=== PATIENT | female | born 1955 | race African-American/Black ===

== ENCOUNTER 2018-04-13 18:01 | Emergency (ER) | payer MEDICARE, MEDICAID ==
[~2018-04-13] VITALS: Ht 157.5 cm; Wt 55.0 kg
[2018-04-13] MEDS ORDERED: ALBUTEROL (0.083%) 2.5MG/3ML NEB HHN STA (19:30)
[2018-04-13] MEDS ORDERED: ONDANSETRON HCL 4MG/2ML VIAL IV ONE (19:30)
[2018-04-13 19:53] LABS: BASOPHILS % 1.3 % (0.0-2.0); EOSINOPHILS % 0.7 % (0.0-5.0); HEMATOCRIT. 41.9 % (36.0-48.0); HEMOGLOBIN. 14.5 g/dL (12.0-16.0); LYMPHOCYTES % 24.7 % (20.0-50.0); MEAN CORPUSCULAR HEMOGLOBIN 33.3 pg (28.0-32.0); MEAN CORPUSCULAR VOLUME 96.4 fL (81.0-99.0); MONOCYTES % 7.3 % (2.0-8.0); PLATELET 277 x1000/uL (130-400); RED BLOOD CELL COUNT 4.35 mill/uL (4.2-5.4); RED CELL DISTRIBUTION WIDTH 13.3 % (11.6-14.6)
[2018-04-13 19:56] LABS: CHLORIDE 99 mEq/L (98-107)
[2018-04-13 20:00] LABS: ETHANOL BLOOD < 10 mg/dL
[2018-04-13 20:11] LABS: PROTHROMBIN TIME 10.9 sec (9.4-11.6)
[2018-04-13] MEDS ORDERED: DEXAMETHASONE 10 MG/ML VIAL IV ONE (21:30)
[2018-04-13 21:50] VITALS: BP 135/96
[2018-04-14] MEDS ORDERED: ESCI10TA54 PO (13:18)
[2018-04-14] MEDS ORDERED: IBUP-2030 PO (13:18)
[2018-04-14] MEDS ORDERED: OMEP20CA10 PO (13:18)
[2018-04-14] MEDS ORDERED: SIMV20TA6 PO (13:18)
== END 2018-04-13 22:05 | disposition left against medical advice (07) ==
LOC: ER 18:12
DX: D49.6 Neoplasm of unspecified behavior of brain (principal); M50.322 Other cervical disc degeneration at C5-C6 level; M50.323 Other cervical disc degeneration at C6-C7 level; R11.2 Nausea with vomiting, unspecified; J44.9 Chronic obstructive pulmonary disease, unspecified; R20.2 Paresthesia of skin; R06.2 Wheezing; I10 Essential (primary) hypertension; R53.1 Weakness; F10.10 Alcohol abuse, uncomplicated; G47.00 Insomnia, unspecified; F17.210 Nicotine dependence, cigarettes, uncomplicated; R79.1 Abnormal coagulation profile; R79.9 Abnormal finding of blood chemistry, unspecified; Z86.59 Personal history of other mental and behavioral disorders; Y90.0 Blood alcohol level of less than 20 mg/100 ml
CPT/HCPCS: 36415; 70450; 71045; 72125; 80053; 85025; 85610; 93005; 94640; 96374; 96375; 99285; G0482; J1100; J2405; J7611

== ENCOUNTER 2018-04-14 08:51 | Inpatient (IN) | payer OTHER, MEDICAID ==
[~2018-04-14] VITALS: Ht 170.2 cm; Wt 52.6 kg
[2018-04-14] MEDS ORDERED: MORPHINE SULFATE 4 MG/ML CPJ (NOT FOR IM USE) IV STA (09:20)
[2018-04-14] MEDS ORDERED: ONDANSETRON HCL 4MG/2ML VIAL IV STA (09:20)
[2018-04-14 10:06] LABS: HEMATOCRIT. 41.9 % (36.0-48.0); HEMOGLOBIN. 14.3 g/dL (12.0-16.0); MEAN CORPUSCULAR HEMOGLOBIN 33.2 pg (28.0-32.0); MEAN CORPUSCULAR VOLUME 97.2 fL (81.0-99.0); MEAN PLATELET VOLUME 8.3 fl (7.4-10.4); PLATELET 257 x1000/uL (130-400); RED BLOOD CELL COUNT 4.31 mill/uL (4.2-5.4); RED CELL DISTRIBUTION WIDTH 12.8 % (11.6-14.6)
[2018-04-14 10:12] LABS: CHLORIDE 97 mEq/L (98-107)
[2018-04-14 10:13] LABS: PROTHROMBIN TIME 10.7 sec (9.4-11.6)
[2018-04-14] MEDS ORDERED: GADOBENATE DIMEGLUMINE 529 MG/ML 10ML IV ONE (10:14)
[2018-04-14 11:30] LABS: PLATELET ESTIMATE NORMAL
[2018-04-14] MEDS ORDERED: NICARDIPINE 100 MG in SODIUM CHLORIDE 0.9% 60 ML IV PRN (12:00)
[2018-04-14 12:15] VITALS: BP 153/85
[2018-04-14] MEDS ORDERED: DOCUSATE SODIUM 250MG CAPSULE PO PRN (12:30)
[2018-04-14] MEDS ORDERED: ACETAMINOPHEN 325MG TABLET PO PRN (12:30)
[2018-04-14] MEDS ORDERED: ONDANSETRON HCL 4MG/2ML VIAL IV PRN (12:30)
[2018-04-14 12:51] VITALS: BP 153/85
[2018-04-14] MEDS ORDERED: IBUP-2030 PO (13:18)
[2018-04-14] MEDS ORDERED: SIMV20TA6 PO (13:18)
[2018-04-14] MEDS ORDERED: OMEP20CA10 PO (13:18)
[2018-04-14] MEDS ORDERED: ESCI10TA54 PO (13:18)
[2018-04-14] MEDS ORDERED: ONDANSETRON 4MG ODT PO PRN (14:30)
[2018-04-14] MEDS: DEXAMETHASONE 4MG/ML 1ML VIAL IV SCH ×3 (15:55→23:56)
[2018-04-14] MEDS: LEVETIRACETAM 500 MG in SODIUM CHLORIDE 0.9% 100 ML IV SCH ×2 (15:56→22:57)
[2018-04-14] MEDS: DEXT 5%/LACTATED RINGERS 1,000 ML IV SCH (15:56)
[2018-04-14] MEDS: ENOXAPARIN 40MG/0.4ML SYR SUBCUT SCH (15:57)
[2018-04-14 16:00] VITALS: BP 160/67
[2018-04-14] MEDS ORDERED: DOCUSATE SODIUM 100MG CAPSULE PO PRN (16:52)
[2018-04-14] MEDS ORDERED: CLONIDINE 0.1MG TABLET PO PRN (17:00)
[2018-04-14] MEDS ORDERED: DOCUSATE SODIUM 250MG CAPSULE PO SCH (17:00)
[2018-04-14] MEDS ORDERED: IOHEXOL-300 100 ML BOTTLE ONE (17:45)
[2018-04-14] MEDS: DOCUSATE SODIUM 100MG CAPSULE PO SCH (18:15)
[2018-04-14 20:00] VITALS: BP 140/71
[2018-04-14] MEDS ORDERED: AMLODIPINE 5MG TABLET PO NR (20:15)
[2018-04-14] MEDS ORDERED: IPRATROPIUM/ALBUTEROL 0.5-3(2.5)MG/3ML NEB HHN PRN (20:15)
[2018-04-14] MEDS: TRAZODONE HCL 50MG TABLET PO SCH (21:38)
[2018-04-15] VITALS: BP 125/55
[2018-04-15] MEDS: HYDROCODONE/ACETAMINOPHEN 5/325MG TABLET PO PRN ×2 (00:15→21:55)
[2018-04-15] MEDS: IPRATROPIUM/ALBUTEROL 0.5-3(2.5)MG/3ML NEB HHN SCH ×4 (00:55→20:12)
[2018-04-15 04:00] VITALS: BP 126/66
[2018-04-15] MEDS: DEXAMETHASONE 4MG/ML 1ML VIAL IV SCH ×4 (05:57→23:42)
[2018-04-15 06:45] LABS: BASOPHILS % 0.4 % (0.0-2.0); HEMATOCRIT. 38.8 % (36.0-48.0); HEMOGLOBIN. 13.1 g/dL (12.0-16.0); LYMPHOCYTES % 17.6 % (20.0-50.0); MEAN CORPUSCULAR HEMOGLOBIN 33.3 pg (28.0-32.0); MEAN CORPUSCULAR VOLUME 98.4 fL (81.0-99.0); MEAN PLATELET VOLUME 9.2 fl (7.4-10.4); MONOCYTES % 3.1 % (2.0-8.0); NEUTROPHILS % 78.9 % (40.0-76.0); PLATELET 215 x1000/uL (130-400); RED BLOOD CELL COUNT 3.94 mill/uL (4.2-5.4); RED CELL DISTRIBUTION WIDTH 13.4 % (11.6-14.6)
[2018-04-15 07:08] LABS: CHLORIDE 100 mEq/L (98-107)
[2018-04-15 08:00] VITALS: BP 137/66
[2018-04-15] MEDS ORDERED: DEXTROSE 50% WATER 50ML SYRINGE IV PRN (08:45)
[2018-04-15] MEDS: AMLODIPINE 5MG TABLET PO SCH (09:05)
[2018-04-15] MEDS: DOCUSATE SODIUM 100MG CAPSULE PO SCH ×2 (09:05→17:35)
[2018-04-15] MEDS: BLOOD SUGAR DIAGNOSTIC STRIP TEST SCH ×4 (09:05→20:02)
[2018-04-15] MEDS: OMEPRAZOLE 20MG CAPSULE EXTENDED RELEASE PO SCH (09:05)
[2018-04-15] MEDS: INSULIN LISPRO 100 UNITS/ML SUBCUT SCH ×4 (09:13→20:15)
[2018-04-15] MEDS: DEXT 5%/LACTATED RINGERS 1,000 ML IV SCH (09:14)
[2018-04-15] MEDS: NICOTINE 14MG PATCH TD SCH (09:14)
[2018-04-15 12:00] VITALS: BP 125/46
[2018-04-15] MEDS: ENOXAPARIN 40MG/0.4ML SYR SUBCUT SCH (15:38)
[2018-04-15 15:49] VITALS: BP 109/47
[2018-04-15] MEDS ORDERED: LEVOFLOXACIN 500MG PREMIX 100 ML IV SCH (17:00)
[2018-04-15] MEDS: LEVOFLOXACIN 500MG PREMIX 100 ML IV SCH (17:35)
[2018-04-15 19:57] VITALS: BP 122/60
[2018-04-15] MEDS: TRAZODONE HCL 50MG TABLET PO SCH (20:14)
[2018-04-15] MEDS: LEVETIRACETAM 500MG TABLET PO SCH (20:14)
[2018-04-16] VITALS: BP 130/59
[2018-04-16] MEDS: IPRATROPIUM/ALBUTEROL 0.5-3(2.5)MG/3ML NEB HHN SCH ×4 (00:54→21:04)
[2018-04-16] MEDS: DEXT 5%/LACTATED RINGERS 1,000 ML IV SCH ×2 (03:30→18:43)
[2018-04-16 03:59] VITALS: BP 128/63
[2018-04-16] MEDS: DEXAMETHASONE 4MG/ML 1ML VIAL IV SCH ×4 (05:32→23:31)
[2018-04-16 06:47] LABS: BASOPHILS % 0.5 % (0.0-2.0); HEMATOCRIT. 38.5 % (36.0-48.0); HEMOGLOBIN. 12.8 g/dL (12.0-16.0); LYMPHOCYTES % 10.3 % (20.0-50.0); MEAN CORPUSCULAR HEMOGLOBIN 32.8 pg (28.0-32.0); MEAN CORPUSCULAR VOLUME 98.4 fL (81.0-99.0); MEAN PLATELET VOLUME 9.6 fl (7.4-10.4); MONOCYTES % 3.4 % (2.0-8.0); NEUTROPHILS % 85.8 % (40.0-76.0); PLATELET 186 x1000/uL (130-400); RED BLOOD CELL COUNT 3.91 mill/uL (4.2-5.4); RED CELL DISTRIBUTION WIDTH 12.8 % (11.6-14.6)
[2018-04-16 07:30] LABS: CHLORIDE 101 mEq/L (98-107)
[2018-04-16] MEDS: BLOOD SUGAR DIAGNOSTIC STRIP TEST SCH ×4 (07:40→20:14)
[2018-04-16 09:30] VITALS: BP 111/54
[2018-04-16] MEDS: DOCUSATE SODIUM 100MG CAPSULE PO SCH ×2 (09:34→17:00)
[2018-04-16] MEDS: AMLODIPINE 5MG TABLET PO SCH (09:34)
[2018-04-16] MEDS: LEVETIRACETAM 500MG TABLET PO SCH ×2 (09:34→20:14)
[2018-04-16] MEDS: INSULIN LISPRO 100 UNITS/ML SUBCUT SCH ×4 (09:35→20:15)
[2018-04-16] MEDS: NICOTINE 14MG PATCH TD SCH (09:38)
[2018-04-16] MEDS: POTASSIUM CHLORIDE 20MEQ TABLET SR PO SCH ×2 (09:57→18:42)
[2018-04-16] MEDS: OMEPRAZOLE 20MG CAPSULE EXTENDED RELEASE PO SCH (10:00)
[2018-04-16] MEDS ORDERED: CITALOPRAM HYDROBROMIDE 10MG TABLET PO ONE (10:15)
[2018-04-16] MEDS ORDERED: CITALOPRAM HYDROBROMIDE 20MG TABLET PO NR (10:15)
[2018-04-16 13:00] VITALS: BP 112/73
[2018-04-16] MEDS: ENOXAPARIN 40MG/0.4ML SYR SUBCUT SCH (15:27)
[2018-04-16 16:00] VITALS: BP 141/75
[2018-04-16] MEDS: LEVOFLOXACIN 500MG PREMIX 100 ML IV SCH (18:22)
[2018-04-16] MEDS: MONTELUKAST SODIUM 10MG TABLET PO SCH (18:43)
[2018-04-16 20:00] VITALS: BP_SYST 130; BP_SYST 137; BP_DIAS 67; BP_DIAS 76
[2018-04-16] MEDS: TRAZODONE HCL 50MG TABLET PO SCH (20:14)
[2018-04-16] MEDS: LIDOCAINE 5% PATCH TOP SCH (20:16)
[2018-04-17] VITALS: BP 139/61
[2018-04-17] MEDS: IPRATROPIUM/ALBUTEROL 0.5-3(2.5)MG/3ML NEB HHN SCH ×3 (00:09→15:55)
[2018-04-17 04:00] VITALS: BP 135/84
[2018-04-17] MEDS: DEXAMETHASONE 4MG/ML 1ML VIAL IV SCH ×3 (05:17→17:20)
[2018-04-17] MEDS: POTASSIUM CHLORIDE 20MEQ TABLET SR PO SCH ×2 (05:31→17:20)
[2018-04-17 06:43] LABS: BASOPHILS % 0.5 % (0.0-2.0); EOSINOPHILS % 0.1 % (0.0-5.0); HEMOGLOBIN. 13.8 g/dL (12.0-16.0); LYMPHOCYTES % 13.9 % (20.0-50.0); MEAN CORPUSCULAR HEMOGLOBIN 33.1 pg (28.0-32.0); MEAN CORPUSCULAR VOLUME 98.3 fL (81.0-99.0); MEAN PLATELET VOLUME 9.5 fl (7.4-10.4); MONOCYTES % 5.2 % (2.0-8.0); NEUTROPHILS % 80.3 % (40.0-76.0); PLATELET 189 x1000/uL (130-400); RED BLOOD CELL COUNT 4.17 mill/uL (4.2-5.4)
[2018-04-17 07:12] LABS: CHLORIDE 96 mEq/L (98-107)
[2018-04-17] MEDS: BLOOD SUGAR DIAGNOSTIC STRIP TEST SCH ×4 (07:40→21:14)
[2018-04-17 08:00] VITALS: BP 147/66
[2018-04-17] MEDS: INSULIN LISPRO 100 UNITS/ML SUBCUT SCH ×4 (08:10→21:24)
[2018-04-17] MEDS ORDERED: CITALOPRAM HYDROBROMIDE 10MG TABLET PO SCH (09:00)
[2018-04-17 12:00] VITALS: BP 133/68
[2018-04-17] MEDS: LEVETIRACETAM 500MG TABLET PO SCH ×2 (12:07→21:23)
[2018-04-17] MEDS: AMLODIPINE 5MG TABLET PO SCH (12:07)
[2018-04-17] MEDS: HYDROCODONE/ACETAMINOPHEN 5/325MG TABLET PO PRN (12:08)
[2018-04-17] MEDS: FAMOTIDINE 20MG TABLET PO SCH ×2 (12:09→16:33)
[2018-04-17] MEDS: NICOTINE 14MG PATCH TD SCH (12:09)
[2018-04-17] MEDS: DOCUSATE SODIUM 100MG CAPSULE PO SCH ×2 (12:09→16:34)
[2018-04-17] MEDS: CITALOPRAM HYDROBROMIDE 20MG TABLET PO SCH (12:36)
[2018-04-17] MEDS: ENOXAPARIN 40MG/0.4ML SYR SUBCUT SCH (14:24)
[2018-04-17 16:00] VITALS: BP 123/69
[2018-04-17] MEDS: MONTELUKAST SODIUM 10MG TABLET PO SCH (16:33)
[2018-04-17] MEDS: LIDOCAINE 5% PATCH TOP SCH (16:42)
[2018-04-17] MEDS: DEXT 5%/LACTATED RINGERS 1,000 ML IV SCH (16:42)
[2018-04-17] MEDS: LEVOFLOXACIN 500MG PREMIX 100 ML IV SCH (16:43)
[2018-04-17 20:00] VITALS: BP 133/62
[2018-04-17] MEDS: LORAZEPAM 0.5MG TABLET PO PRN (21:23)
[2018-04-17] MEDS: TRAZODONE HCL 50MG TABLET PO SCH (21:23)
[2018-04-18] VITALS (18 sets, daily range): BP systolic 105–147; BP diastolic 53–92
[2018-04-18] MEDS: IPRATROPIUM/ALBUTEROL 0.5-3(2.5)MG/3ML NEB HHN SCH ×4 (00:08→23:59)
[2018-04-18] MEDS: DEXT 5%/LACTATED RINGERS 1,000 ML IV SCH (01:43)
[2018-04-18] MEDS: POTASSIUM CHLORIDE 20MEQ TABLET SR PO SCH ×2 (05:15→17:54)
[2018-04-18] MEDS: DEXAMETHASONE 4MG/ML 1ML VIAL IV SCH ×4 (05:21→17:54)
[2018-04-18] MEDS: BLOOD SUGAR DIAGNOSTIC STRIP TEST SCH ×4 (05:33→21:34)
[2018-04-18 05:44] LABS: BASOPHILS % 0.5 % (0.0-2.0); EOSINOPHILS % 0.1 % (0.0-5.0); HEMATOCRIT. 44.7 % (36.0-48.0); LYMPHOCYTES % 19.8 % (20.0-50.0); MEAN CORPUSCULAR HEMOGLOBIN 33.1 pg (28.0-32.0); MEAN CORPUSCULAR VOLUME 98.4 fL (81.0-99.0); MEAN PLATELET VOLUME 9.9 fl (7.4-10.4); MONOCYTES % 6.7 % (2.0-8.0); NEUTROPHILS % 72.9 % (40.0-76.0); PLATELET 163 x1000/uL (130-400); RED BLOOD CELL COUNT 4.54 mill/uL (4.2-5.4)
[2018-04-18 06:17] LABS: CHLORIDE 99 mEq/L (98-107)
[2018-04-18] MEDS ORDERED: LIDOCAINE HCL/PF 1% 10 MG/ML 30ML VIAL ONE (07:45)
[2018-04-18] MEDS ORDERED: FENTANYL CITRATE/PF 50MCG/ML 2ML VIAL ONE (07:45)
[2018-04-18] MEDS ORDERED: SODIUM BICARBONATE 4% (2.4MEQ) 5ML VIAL IV ONE (07:47)
[2018-04-18] MEDS ORDERED: FENTANYL CITRATE/PF 50MCG/ML 2ML VIAL IV ONE (08:30)
[2018-04-18] MEDS: DOCUSATE SODIUM 100MG CAPSULE PO SCH ×2 (09:00→17:00)
[2018-04-18] MEDS: AMLODIPINE 5MG TABLET PO SCH (09:00)
[2018-04-18] MEDS: LEVETIRACETAM 500MG TABLET PO SCH ×2 (09:20→21:00)
[2018-04-18] MEDS: CITALOPRAM HYDROBROMIDE 20MG TABLET PO SCH (09:20)
[2018-04-18] MEDS: FAMOTIDINE 20MG TABLET PO SCH ×2 (09:20→17:54)
[2018-04-18] MEDS: NICOTINE 14MG PATCH TD SCH (09:21)
[2018-04-18] MEDS: INSULIN LISPRO 100 UNITS/ML SUBCUT SCH ×4 (09:28→21:34)
[2018-04-18] MEDS ORDERED: MORPHINE SULFATE 4 MG/ML CPJ (NOT FOR IM USE) IV SCH (10:00)
[2018-04-18] MEDS: LEVOFLOXACIN 500MG TABLET PO SCH (11:37)
[2018-04-18] MEDS ORDERED: SODIUM CHLORIDE 0.9% 250 ML IV ONE (11:48)
[2018-04-18] MEDS: ENOXAPARIN 40MG/0.4ML SYR SUBCUT SCH (14:55)
[2018-04-18] MEDS: MONTELUKAST SODIUM 10MG TABLET PO SCH (17:54)
[2018-04-18] MEDS: TRAZODONE HCL 50MG TABLET PO SCH (21:00)
[2018-04-18] MEDS: HYDROCODONE/ACETAMINOPHEN 5/325MG TABLET PO PRN (21:25)
[2018-04-19] VITALS (7 sets, daily range): BP systolic 121–152; BP diastolic 50–86
[2018-04-19] MEDS: DEXAMETHASONE 4MG/ML 1ML VIAL IV SCH ×4 (00:04→18:03)
[2018-04-19 06:16] LABS: BASOPHILS % 0.2 % (0.0-2.0); HEMATOCRIT. 42.7 % (36.0-48.0); HEMOGLOBIN. 14.4 g/dL (12.0-16.0); LYMPHOCYTES % 9.7 % (20.0-50.0); MEAN CORPUSCULAR HEMOGLOBIN 33.2 pg (28.0-32.0); MEAN CORPUSCULAR VOLUME 98.1 fL (81.0-99.0); MEAN PLATELET VOLUME 9.2 fl (7.4-10.4); MONOCYTES % 3.8 % (2.0-8.0); NEUTROPHILS % 86.3 % (40.0-76.0); PLATELET 161 x1000/uL (130-400); RED BLOOD CELL COUNT 4.35 mill/uL (4.2-5.4); RED CELL DISTRIBUTION WIDTH 12.8 % (11.6-14.6)
[2018-04-19 06:29] LABS: CHLORIDE 93 mEq/L (98-107)
[2018-04-19] MEDS: POTASSIUM CHLORIDE 20MEQ TABLET SR PO SCH ×2 (06:35→18:02)
[2018-04-19] MEDS ORDERED: LIDOCAINE HCL 1% 20ML VIAL (Pyxis) INJ ONE (07:32)
[2018-04-19] MEDS ORDERED: SODIUM BICARBONATE 4% (2.4MEQ) 5ML VIAL IV ONE (07:32)
[2018-04-19] MEDS: BLOOD SUGAR DIAGNOSTIC STRIP TEST SCH ×4 (07:40→21:37)
[2018-04-19] MEDS: IPRATROPIUM/ALBUTEROL 0.5-3(2.5)MG/3ML NEB HHN SCH ×2 (08:18→16:42)
[2018-04-19] MEDS: MORPHINE SULFATE 4 MG/ML CPJ (NOT FOR IM USE) IV PRN (08:30)
[2018-04-19] MEDS ORDERED: MORPHINE SULFATE 4 MG/ML CPJ (NOT FOR IM USE) IV NR (09:30)
[2018-04-19] MEDS: AMLODIPINE 5MG TABLET PO SCH (09:46)
[2018-04-19] MEDS: CITALOPRAM HYDROBROMIDE 20MG TABLET PO SCH (09:50)
[2018-04-19] MEDS: FAMOTIDINE 20MG TABLET PO SCH ×2 (09:50→18:02)
[2018-04-19 09:52] LABS: BG BASE EXCESS 1.5 mmol/L (-2.0-2.0); BG CARBOXYHEMOGLOBIN 0.9 % (0.5-1.5); BG DEOXYHEMOGLOBIN 3.4 % (0.0-5.0); BG FRACTION INSPIRED OXYGEN 28; BG HCO3 ACT 26.2 mmol/L (22.0-26.0); BG METHEMOGLOBIN 0.3 % (0.0-1.5); BG OXYGEN SATURATION 96.6 % (92.0-98.5); BG OXYHEMOGLOBIN 95.4 % (94.0-97.0); BG PCO2 41.5 mmHg (35.0-45.0); BG PH 7.418 (7.350-7.450); BG PO2 86.1 mmHg (75.0-100.0); BG SAMPLE SITE LEFT BRACHIAL; BG TOTAL HEMOGLOBIN 15.4 g/dL (12.0-18.0); BG VENT MODE NASAL CANNULA
[2018-04-19] MEDS: LIDOCAINE 5% PATCH TOP SCH ×2 (10:04→10:10)
[2018-04-19] MEDS: INSULIN LISPRO 100 UNITS/ML SUBCUT SCH ×4 (10:05→21:53)
[2018-04-19] MEDS: LEVETIRACETAM 500MG TABLET PO SCH ×2 (10:07→19:47)
[2018-04-19] MEDS: DOCUSATE SODIUM 100MG CAPSULE PO SCH ×2 (10:07→18:02)
[2018-04-19] MEDS: NICOTINE 14MG PATCH TD SCH (10:14)
[2018-04-19] MEDS: DEXT 5%/LACTATED RINGERS 1,000 ML IV SCH (10:43)
[2018-04-19] MEDS: LEVOFLOXACIN 500MG TABLET PO SCH (12:51)
[2018-04-19] MEDS: ENOXAPARIN 40MG/0.4ML SYR SUBCUT SCH (15:28)
[2018-04-19] MEDS: MONTELUKAST SODIUM 10MG TABLET PO SCH (18:02)
[2018-04-19] MEDS: TRAZODONE HCL 50MG TABLET PO SCH (19:47)
[2018-04-19] MEDS: LORAZEPAM 0.5MG TABLET PO PRN (19:47)
[2018-04-20 00:04] VITALS: BP 128/70
[2018-04-20] MEDS: IPRATROPIUM/ALBUTEROL 0.5-3(2.5)MG/3ML NEB HHN SCH ×3 (00:18→15:57)
[2018-04-20] MEDS: DEXAMETHASONE 4MG/ML 1ML VIAL IV SCH ×4 (02:10→17:33)
[2018-04-20 04:00] VITALS: BP 149/63
[2018-04-20] MEDS: POTASSIUM CHLORIDE 20MEQ TABLET SR PO SCH ×2 (05:28→17:33)
[2018-04-20] MEDS: DEXT 5%/LACTATED RINGERS 1,000 ML IV SCH ×2 (05:28→20:17)
[2018-04-20] MEDS: MORPHINE SULFATE 4 MG/ML CPJ (NOT FOR IM USE) IV PRN (05:29)
[2018-04-20] MEDS: BLOOD SUGAR DIAGNOSTIC STRIP TEST SCH ×4 (05:53→20:27)
[2018-04-20 08:00] VITALS: BP 146/72
[2018-04-20 08:40] LABS: BASOPHILS % 0.2 % (0.0-2.0); HEMATOCRIT. 43.3 % (36.0-48.0); HEMOGLOBIN. 14.3 g/dL (12.0-16.0); LYMPHOCYTES % 11.5 % (20.0-50.0); MEAN CORPUSCULAR HEMOGLOBIN 32.6 pg (28.0-32.0); MEAN CORPUSCULAR VOLUME 98.7 fL (81.0-99.0); MEAN PLATELET VOLUME 9.4 fl (7.4-10.4); MONOCYTES % 6.3 % (2.0-8.0); PLATELET 163 x1000/uL (130-400); RED BLOOD CELL COUNT 4.39 mill/uL (4.2-5.4); RED CELL DISTRIBUTION WIDTH 13.1 % (11.6-14.6)
[2018-04-20 08:56] LABS: CHLORIDE 95 mEq/L (98-107)
[2018-04-20] MEDS: INSULIN LISPRO 100 UNITS/ML SUBCUT SCH ×4 (09:02→20:30)
[2018-04-20] MEDS: AMLODIPINE 5MG TABLET PO SCH (09:02)
[2018-04-20] MEDS: NICOTINE 14MG PATCH TD SCH (09:03)
[2018-04-20] MEDS: FAMOTIDINE 20MG TABLET PO SCH ×2 (09:03→16:30)
[2018-04-20] MEDS: LIDOCAINE 5% PATCH TOP SCH (09:03)
[2018-04-20] MEDS: CITALOPRAM HYDROBROMIDE 20MG TABLET PO SCH (09:04)
[2018-04-20] MEDS: DOCUSATE SODIUM 100MG CAPSULE PO SCH ×2 (09:04→16:30)
[2018-04-20] MEDS: LEVETIRACETAM 500MG TABLET PO SCH ×2 (09:04→20:17)
[2018-04-20 09:20] LABS: BG BASE EXCESS 0.9 mmol/L (-2.0-2.0); BG CARBOXYHEMOGLOBIN 1.1 % (0.5-1.5); BG DEOXYHEMOGLOBIN 8.8 % (0.0-5.0); BG METHEMOGLOBIN 0.3 % (0.0-1.5); BG OXYGEN SATURATION 91.1 % (92.0-98.5); BG OXYHEMOGLOBIN 89.8 % (94.0-97.0); BG PCO2 38.6 mmHg (35.0-45.0); BG PO2 58.6 mmHg (75.0-100.0); BG SAMPLE SITE RIGHT BRACHIAL; BG TOTAL HEMOGLOBIN 15.7 g/dL (12.0-18.0); BG VENT MODE ROOM AIR
[2018-04-20] MEDS: LORAZEPAM 0.5MG TABLET PO PRN ×2 (11:55→20:17)
[2018-04-20] MEDS: LEVOFLOXACIN 500MG TABLET PO SCH (11:55)
[2018-04-20 12:00] VITALS: BP 132/68
[2018-04-20] MEDS ORDERED: LIDOCAINE HCL 1% 20ML VIAL (Pyxis) INJ ONE (14:33)
[2018-04-20] MEDS: ENOXAPARIN 40MG/0.4ML SYR SUBCUT SCH (15:50)
[2018-04-20 16:00] VITALS: BP 126/65
[2018-04-20] MEDS: MONTELUKAST SODIUM 10MG TABLET PO SCH (16:30)
[2018-04-20 20:00] VITALS: BP 126/69
[2018-04-20] MEDS: TRAZODONE HCL 50MG TABLET PO SCH (20:17)
[2018-04-21] VITALS: BP 126/55
[2018-04-21] MEDS: IPRATROPIUM/ALBUTEROL 0.5-3(2.5)MG/3ML NEB HHN SCH ×2 (00:14→07:26)
[2018-04-21 04:00] VITALS: BP 128/68
[2018-04-21] MEDS: LORAZEPAM 0.5MG TABLET PO PRN (04:43)
[2018-04-21] MEDS: POTASSIUM CHLORIDE 20MEQ TABLET SR PO SCH (05:24)
[2018-04-21] MEDS: BLOOD SUGAR DIAGNOSTIC STRIP TEST SCH (05:25)
[2018-04-21] MEDS: DEXAMETHASONE 4MG/ML 1ML VIAL IV SCH ×3 (05:26→12:01)
[2018-04-21 06:48] LABS: BASOPHILS % 0.2 % (0.0-2.0); HEMATOCRIT. 42.6 % (36.0-48.0); HEMOGLOBIN. 14.4 g/dL (12.0-16.0); LYMPHOCYTES % 8.2 % (20.0-50.0); MEAN CORPUSCULAR HEMOGLOBIN 33.4 pg (28.0-32.0); MEAN CORPUSCULAR VOLUME 98.6 fL (81.0-99.0); MEAN PLATELET VOLUME 9.8 fl (7.4-10.4); MONOCYTES % 6.2 % (2.0-8.0); NEUTROPHILS % 85.4 % (40.0-76.0); PLATELET 167 x1000/uL (130-400); RED BLOOD CELL COUNT 4.32 mill/uL (4.2-5.4); RED CELL DISTRIBUTION WIDTH 13.1 % (11.6-14.6)
[2018-04-21 08:00] VITALS: BP 113/55
[2018-04-21 08:32] LABS: CHLORIDE 94 mEq/L (98-107)
[2018-04-21] MEDS: LIDOCAINE 5% PATCH TOP SCH (09:00)
[2018-04-21] MEDS: CITALOPRAM HYDROBROMIDE 20MG TABLET PO SCH (10:16)
[2018-04-21] MEDS: FAMOTIDINE 20MG TABLET PO SCH (10:16)
[2018-04-21] MEDS: AMLODIPINE 5MG TABLET PO SCH (10:17)
[2018-04-21] MEDS: DOCUSATE SODIUM 100MG CAPSULE PO SCH (10:17)
[2018-04-21] MEDS: LEVETIRACETAM 500MG TABLET PO SCH (10:17)
[2018-04-21] MEDS: NICOTINE 14MG PATCH TD SCH (10:17)
[2018-04-21] MEDS: INSULIN LISPRO 100 UNITS/ML SUBCUT SCH (10:26)
[2018-04-21 12:00] VITALS: BP 108/57
[2018-04-21] MEDS: LEVOFLOXACIN 500MG TABLET PO SCH (12:01)
[2018-04-21 12:11] VITALS: BP 114/50
== END 2018-04-21 13:31 | disposition home or self-care (01) | DRG 180 ==
LOC: ER 09:14 → 7WST 10:48 → EDBEDREQ 10:50 → EDBEDREQTM 10:50 → ENRESERV 10:59
PROVIDERS: ADMIT Internal Medicine Geriatric Medicine; ATTEND Internal Medicine Geriatric Medicine
PROC: 0BDC4ZX Extraction of Right Upper Lung Lobe, Percutaneous Endoscopic Approach, Diagnostic (ICD-10-PCS; principal; 2018-04-18)
PROC: 0W9930Z Drainage of Right Pleural Cavity with Drainage Device, Percutaneous Approach (ICD-10-PCS; 2018-04-19)
DX: C34.2 Malignant neoplasm of middle lobe, bronchus or lung (principal); J18.9 Pneumonia, unspecified organism; J44.0 Chronic obstructive pulmonary disease with (acute) lower respiratory infection; J93.83 Other pneumothorax; C79.31 Secondary malignant neoplasm of brain; F32.9 Major depressive disorder, single episode, unspecified; E78.5 Hyperlipidemia, unspecified; I34.1 Nonrheumatic mitral (valve) prolapse; I10 Essential (primary) hypertension; E87.6 Hypokalemia; F41.1 Generalized anxiety disorder; D72.825 Bandemia; T38.0X5A Adverse effect of glucocorticoids and synthetic analogues, initial encounter; R73.9 Hyperglycemia, unspecified; F17.210 Nicotine dependence, cigarettes, uncomplicated; G47.00 Insomnia, unspecified; Z79.899 Other long term (current) drug therapy; Z82.49 Family history of ischemic heart disease and other diseases of the circulatory system; Y92.89 Other specified places as the place of occurrence of the external cause
CPT/HCPCS: 32405; 36415; 36600; 70553; 71045; 71270; 74178; 77012; 80048; 80053; 82375; 82378; 82805; 82962; 83036; 85025; 85610; 85730; 87070; 88305; 93005; 93970; 94640; 96365; 96375; 97116; 97161; 99152; 99153; 99285; A9577; C1893; J1100; J1650; J1815; J1953; J1956; J2270; J2405; J3010; J3490; J7030; J7050; J7620; Q0162; Q9967

== ENCOUNTER 2018-04-26 14:41 | Inpatient (IN) | payer OTHER, MEDICAID ==
[~2018-04-26] VITALS: Ht 170.2 cm; Wt 54.5 kg
[~2018-04-26 14:41] MED LIST: ESCI10TA54 PO; IBUP-2030 PO; OMEP20CA10 PO; SIMV20TA6 PO
[2018-04-26] MEDS ORDERED: MORPHINE SULFATE 4 MG/ML CPJ (NOT FOR IM USE) IV STA (15:52)
[2018-04-26] MEDS ORDERED: ONDANSETRON HCL 4MG/2ML VIAL IV STA (15:52)
[2018-04-26] MEDS ORDERED: SODIUM CHLORIDE 0.9% 1,000 ML IV ONE (15:52)
[2018-04-26 16:21] LABS: BG CARBOXYHEMOGLOBIN 0.8 % (0.5-1.5); BG FRACTION INSPIRED OXYGEN 21; BG HCO3 ACT 20.5 mmol/L (22.0-26.0); BG METHEMOGLOBIN 0.2 % (0.0-1.5); BG PCO2 32.2 mmHg (35.0-45.0); BG PH 7.421 (7.350-7.450); BG PO2 90.1 mmHg (75.0-100.0); BG SAMPLE SITE RIGHT BRACHIAL; BG TOTAL HEMOGLOBIN 14.4 g/dL (12.0-18.0); BG VENT MODE ROOM AIR
[2018-04-26 16:44] LABS: BASOPHILS % 0.1 % (0.0-2.0); HEMATOCRIT. 43.3 % (36.0-48.0); HEMOGLOBIN. 14.3 g/dL (12.0-16.0); LYMPHOCYTES % 7.1 % (20.0-50.0); MEAN CORPUSCULAR HEMOGLOBIN 32.8 pg (28.0-32.0); MEAN CORPUSCULAR VOLUME 99.3 fL (81.0-99.0); MEAN PLATELET VOLUME 9.5 fl (7.4-10.4); MONOCYTES % 6.7 % (2.0-8.0); NEUTROPHILS % 86.1 % (40.0-76.0); PLATELET 290 x1000/uL (130-400); RED BLOOD CELL COUNT 4.36 mill/uL (4.2-5.4); RED CELL DISTRIBUTION WIDTH 12.9 % (11.6-14.6)
[2018-04-26 16:48] LABS: CLARITY URINE CLEAR (CLEAR); COLOR URINE YELLOW (YELLOW); KETONES URINE NEGATIVE (NEGATIVE); LEUKOCYTE ESTERASE URINE NEGATIVE (NEGATIVE); NITRITE URINE NEGATIVE (NEGATIVE); OCCULT BLOOD URINE NEGATIVE (NEGATIVE); PROTEIN URINE NEGATIVE (NEGATIVE); SPECIFIC GRAVITY URINE 1.034 (1.005-1.030); UROBILINOGEN URINE 0.2 E.U./dL (0.2-1.0)
[2018-04-26 16:50] LABS: CHLORIDE 88 mEq/L (98-107)
[2018-04-26 16:52] LABS: PARTIAL THROMBOPLASTIN TIME 22.5 sec (23.4-31.0); PROTHROMBIN TIME 10.6 sec (9.4-11.6)
[2018-04-26 16:57] LABS: ETHANOL BLOOD < 10 mg/dL
[2018-04-26 16:59] LABS: BETA HYDROXYBUTYRATE 0.1 mMol/L (0.0-0.3)
[2018-04-26 17:11] LABS: *BARBITURATES SCREEN URINE NEGATIVE (NEGATIVE); *BENZODIAZEPINES SCREEN URINE NEGATIVE (NEGATIVE); *COCAINE SCREEN URINE NEGATIVE (NEGATIVE)
[2018-04-26 17:12] LABS: CANNABINOID URINE SCREEN NEGATIVE (NEGATIVE); METHADONE URINE SCREEN NEGATIVE (NEGATIVE); OPIATES URINE SCREEN PRESUMTIVE POSITIVE (NEGATIVE); PHENCYCLIDINE URINE SCREEN NEGATIVE (NEGATIVE)
[2018-04-26 17:14] LABS: *AMPHETAMINES SCREEN URINE NEGATIVE (NEGATIVE)
[2018-04-26] MEDS ORDERED: INSULIN REGULAR (HUMULIN R) 300UNITS/3ML SUBCUT ONE (19:15)
[2018-04-26] MEDS ORDERED: ACETAMINOPHEN 325MG TABLET PO ONE (23:30)
[2018-04-27] MEDS ORDERED: GUAIFENESIN 200MG/10ML SUGAR FREE UDC PO PRN (00:15)
[2018-04-27] MEDS ORDERED: HYDROCODONE/ACETAMINOPHEN 5/325MG TABLET PO PRN (00:15)
[2018-04-27] MEDS ORDERED: MAGNESIUM/ALUMINUM HYDROXIDE/SIMETHICONE 30ML UDC PO PRN (00:15)
[2018-04-27] MEDS ORDERED: ACETAMINOPHEN 325MG TABLET PO PRN (00:15)
[2018-04-27] MEDS ORDERED: ONDANSETRON 4MG ODT PO PRN (00:15)
[2018-04-27] MEDS ORDERED: MORPHINE SULFATE 4 MG/ML CPJ (NOT FOR IM USE) IV PRN (00:15)
[2018-04-27] MEDS ORDERED: NA PHOS,M-B/NA PHOS,DI-BA ENEMA 118ML PR PRN (00:15)
[2018-04-27] MEDS ORDERED: CLONIDINE 0.1MG TABLET PO PRN (00:15)
[2018-04-27] MEDS ORDERED: DOCUSATE SODIUM 100MG CAPSULE PO PRN (00:15)
[2018-04-27] MEDS ORDERED: INSULIN GLARGINE UD 100 UNITS/ML SYR SUBCUT NR (03:00)
[2018-04-27 04:00] VITALS: BP 124/56
[2018-04-27] MEDS ORDERED: MONT10TA24 PO (04:27)
[2018-04-27] MEDS ORDERED: DEXA4TAB PO (04:27)
[2018-04-27] MEDS ORDERED: AMLO5TAB88 PO (04:27)
[2018-04-27] MEDS ORDERED: KEPP500 PO (04:27)
[2018-04-27] MEDS ORDERED: LEVO500T89 PO (04:27)
[2018-04-27] MEDS ORDERED: ALBU18HF2 IH (04:27)
[2018-04-27] MEDS ORDERED: HYDR-4001 PO (04:27)
[2018-04-27] MEDS ORDERED: FAMO20TA8 PO (04:27)
[2018-04-27 04:28] VITALS: BP 127/57
[2018-04-27] MEDS: SODIUM CHLORIDE 0.9% 1,000 ML IV SCH ×2 (05:58→17:30)
[2018-04-27] MEDS ORDERED: DEXTROSE 50% WATER 50ML SYRINGE IV PRN (06:30)
[2018-04-27] MEDS ORDERED: ZOLPIDEM TARTRATE 5MG TABLET PO PRN (06:30)
[2018-04-27] MEDS: BLOOD SUGAR DIAGNOSTIC STRIP TEST SCH ×3 (06:39→17:20)
[2018-04-27] MEDS: INSULIN LISPRO 100 UNITS/ML SUBCUT SCH ×3 (06:41→17:50)
[2018-04-27 08:00] VITALS: BP_SYST 108; BP_SYST 120; BP_DIAS 52; BP_DIAS 69
[2018-04-27] MEDS ORDERED: AMLODIPINE 10MG TABLET PO SCH (09:00)
[2018-04-27] MEDS ORDERED: LEVETIRACETAM 500MG TABLET PO SCH (09:00)
[2018-04-27 12:00] VITALS: BP 109/55
[2018-04-27] MEDS ORDERED: INSULIN GLARGINE UD 100 UNITS/ML SYR SUBCUT SCH ×4 (13:00→22:00)
[2018-04-27 13:51] LABS: CHLORIDE 97 mEq/L (98-107)
[2018-04-27 16:00] VITALS: BP 98/49
[2018-04-27] MEDS ORDERED: INSULIN LISPRO 100 UNITS/ML SUBCUT NR (16:15)
[2018-04-27 17:51] VITALS: BP 108/53
== END 2018-04-27 19:20 | disposition home or self-care (01) | DRG 639 ==
LOC: ER 14:41 → 6WST 20:47 → ENRESERV 04-27 03:07
PROVIDERS: ADMIT Hospitalist; ATTEND Hospitalist
DX: E11.65 Type 2 diabetes mellitus with hyperglycemia (principal); Z85.118 Personal history of other malignant neoplasm of bronchus and lung; Z87.891 Personal history of nicotine dependence; Z85.841 Personal history of malignant neoplasm of brain; Z79.899 Other long term (current) drug therapy
CPT/HCPCS: 36415; 36600; 70450; 71045; 80048; 80053; 80305; 81003; 82010; 82375; 82805; 82962; 83036; 83690; 83880; 84484; 85025; 85610; 85730; 93005; 96361; 96372; 96374; 96375; 99285; G0482; J1815; J2270; J2405; J7030; Q0162

== ENCOUNTER 2018-05-01 11:51 | Emergency (ER) | payer OTHER, MEDICAID ==
[~2018-05-01] VITALS: Ht 170.2 cm; Wt 54.0 kg
[~2018-05-01 11:51] MED LIST changes: +ALBU18HF2 IH; +AMLO5TAB88 PO; +DEXA4TAB PO; +FAMO20TA8 PO; +HYDR-4001 PO; +KEPP500 PO; +LEVO500T89 PO; +MONT10TA24 PO
[2018-05-01] MEDS ORDERED: SODIUM CHLORIDE 0.9% 1,000 ML IV ONE ×2 (12:22)
[2018-05-01 13:00] LABS: HEMATOCRIT. 40.5 % (36.0-48.0); HEMOGLOBIN. 13.6 g/dL (12.0-16.0); MEAN CORPUSCULAR HEMOGLOBIN 33.6 pg (28.0-32.0); MEAN CORPUSCULAR VOLUME 100.3 fL (81.0-99.0); MEAN PLATELET VOLUME 9.7 fl (7.4-10.4); PLATELET 189 x1000/uL (130-400); RED BLOOD CELL COUNT 4.04 mill/uL (4.2-5.4)
[2018-05-01 13:08] LABS: CHLORIDE 89 mEq/L (98-107)
[2018-05-01 13:09] LABS: PROTHROMBIN TIME 10.1 sec (9.4-11.6)
[2018-05-01 13:17] LABS: BETA HYDROXYBUTYRATE 0.2 mMol/L (0.0-0.3)
[2018-05-01 13:20] LABS: CLARITY URINE CLEAR (CLEAR); COLOR URINE YELLOW (YELLOW); KETONES URINE NEGATIVE (NEGATIVE); LEUKOCYTE ESTERASE URINE NEGATIVE (NEGATIVE); NITRITE URINE NEGATIVE (NEGATIVE); OCCULT BLOOD URINE NEGATIVE (NEGATIVE); PROTEIN URINE NEGATIVE (NEGATIVE); SPECIFIC GRAVITY URINE 1.035 (1.005-1.030); UROBILINOGEN URINE 0.2 E.U./dL (0.2-1.0)
[2018-05-01 13:23] LABS: BG BASE EXCESS -2.9 mmol/L (-2.0-2.0); BG CARBOXYHEMOGLOBIN 0.9 % (0.5-1.5); BG DEOXYHEMOGLOBIN 2.7 % (0.0-5.0); BG FRACTION INSPIRED OXYGEN 21; BG HCO3 ACT 20.7 mmol/L (22.0-26.0); BG METHEMOGLOBIN 0.3 % (0.0-1.5); BG OXYGEN SATURATION 97.3 % (92.0-98.5); BG OXYHEMOGLOBIN 96.1 % (94.0-97.0); BG PCO2 33.1 mmHg (35.0-45.0); BG PH 7.415 (7.350-7.450); BG PO2 93.8 mmHg (75.0-100.0); BG SAMPLE SITE LEFT BRACHIAL; BG TOTAL HEMOGLOBIN 13.7 g/dL (12.0-18.0); BG VENT MODE ROOM AIR
[2018-05-01 14:22] LABS: PLATELET ESTIMATE NORMAL
[2018-05-01] MEDS ORDERED: SODIUM CHLORIDE 0.9% 1,000 ML IV NR (14:45)
[2018-05-01 15:56] LABS: CHLORIDE 99 mEq/L (98-107)
[2018-05-01 18:08] VITALS: BP 122/60
== END 2018-05-01 18:10 | disposition home or self-care (01) ==
LOC: ER 12:20
DX: E11.65 Type 2 diabetes mellitus with hyperglycemia (principal); J44.9 Chronic obstructive pulmonary disease, unspecified; E78.00 Pure hypercholesterolemia, unspecified; C34.90 Malignant neoplasm of unspecified part of unspecified bronchus or lung; C79.31 Secondary malignant neoplasm of brain; Z87.891 Personal history of nicotine dependence; Z79.4 Long term (current) use of insulin
CPT/HCPCS: 36415; 36600; 70450; 71045; 80048; 80053; 81003; 82010; 82375; 82805; 82962; 84484; 85025; 85610; 93005; 96360; 99285; J7030

== ENCOUNTER 2018-05-12 09:28 | Inpatient (IN) | payer OTHER, MEDICAID ==
[~2018-05-12] VITALS: Ht 170.2 cm; Wt 58.1 kg
[2018-05-12] VITALS (21 sets, daily range): BP systolic 112–152; BP diastolic 52–112
[2018-05-12] MEDS ORDERED: ONDANSETRON HCL 4MG/2ML VIAL IV STA (10:03)
[2018-05-12] MEDS ORDERED: LORAZEPAM 2MG/ML CPJ IV ONE (10:15)
[2018-05-12] MEDS ORDERED: LEVETIRACETAM 500MG PREMIX 100 ML IV ONE ×2 (10:15→13:30)
[2018-05-12] MEDS ORDERED: DEXAMETHASONE 10 MG/ML VIAL IV ONE (10:15)
[2018-05-12 11:36] LABS: BASOPHILS % 0.4 % (0.0-2.0); CHLORIDE 105 mEq/L (98-107); EOSINOPHILS % 0.7 % (0.0-5.0); HEMATOCRIT. 31.9 % (36.0-48.0); HEMOGLOBIN. 10.9 g/dL (12.0-16.0); MEAN CORPUSCULAR HEMOGLOBIN 33.6 pg (28.0-32.0); MEAN CORPUSCULAR VOLUME 98.3 fL (81.0-99.0); MONOCYTES % 5.2 % (2.0-8.0); NEUTROPHILS % 80.7 % (40.0-76.0); PLATELET 191 x1000/uL (130-400); RED BLOOD CELL COUNT 3.24 mill/uL (4.2-5.4); RED CELL DISTRIBUTION WIDTH 13.1 % (11.6-14.6)
[2018-05-12 11:40] LABS: INR 0.9; PARTIAL THROMBOPLASTIN TIME 23.8 sec (23.4-31.0); PROTHROMBIN TIME 9.1 sec (9.1-11.1)
[2018-05-12] MEDS ORDERED: ACETAMINOPHEN 325MG TABLET PO PRN (13:30)
[2018-05-12] MEDS ORDERED: IPRATROPIUM/ALBUTEROL 0.5-3(2.5)MG/3ML NEB INH PRN (13:30)
[2018-05-12] MEDS ORDERED: LORAZEPAM 0.5MG TABLET PO PRN (13:30)
[2018-05-12] MEDS ORDERED: IPRATROPIUM/ALBUTEROL 0.5-3(2.5)MG/3ML NEB HHN PRN (14:00)
[2018-05-12] MEDS ORDERED: GADOBENATE DIMEGLUMINE 529 MG/ML 10ML IV ONE (14:33)
[2018-05-12] MEDS ORDERED: LEVETIRACETAM 500MG PREMIX 100 ML IV SCH (17:00)
[2018-05-12] MEDS ORDERED: ONDANSETRON HCL 4MG/2ML VIAL IV PRN (17:00)
[2018-05-12 17:26] LABS: AMMONIA 15 uMol/L (<32)
[2018-05-12] MEDS ORDERED: NICARDIPINE 100 MG in SODIUM CHLORIDE 0.9% 60 ML IV PRN ×2 (18:30→19:00)
[2018-05-12] MEDS: DEXAMETHASONE 4MG/ML 1ML VIAL IV SCH (18:33)
[2018-05-12] MEDS: DEXT 5%/LACTATED RINGERS 1,000 ML IV SCH (18:35)
[2018-05-12] MEDS ORDERED: PHENYTOIN SODIUM 100MG/2ML VIAL IV SCH (18:45)
[2018-05-12] MEDS: IPRATROPIUM/ALBUTEROL 0.5-3(2.5)MG/3ML NEB HHN SCH ×2 (19:58→20:08)
[2018-05-12] MEDS ORDERED: PHENYTOIN SODIUM 500MG in SODIUM CHLORIDE 0.9% 50ML IV NR (20:00)
[2018-05-12] MEDS: CEFEPIME 2,000 MG in DEXT 5% WATER 100 ML IV SCH (20:30)
[2018-05-12] MEDS: HYDROCODONE/ACETAMINOPHEN 5/325MG TABLET PO PRN (21:26)
[2018-05-12] MEDS: LEVETIRACETAM 500MG in SODIUM CHLORIDE 0.9% 100ML IV SCH (21:43)
[2018-05-12] MEDS: METRONIDAZOLE 500 MG PREMIX 100 ML IV SCH (21:44)
[2018-05-12] MEDS: PHENYTOIN SODIUM 100MG/2ML VIAL IV SCH (21:47)
[2018-05-13] VITALS (63 sets, daily range): BP systolic 57–156; BP diastolic 34–91
[2018-05-13] MEDS: DEXAMETHASONE 4MG/ML 1ML VIAL IV SCH ×4 (01:02→18:01)
[2018-05-13 02:13] LABS: CLARITY URINE CLEAR (CLEAR); COLOR URINE YELLOW (YELLOW); KETONES URINE NEGATIVE (NEGATIVE); LEUKOCYTE ESTERASE URINE NEGATIVE (NEGATIVE); NITRITE URINE NEGATIVE (NEGATIVE); OCCULT BLOOD URINE NEGATIVE (NEGATIVE); PH URINE 6.5 (4.5-8.0); PROTEIN URINE NEGATIVE (NEGATIVE); SPECIFIC GRAVITY URINE 1.015 (1.005-1.030); UROBILINOGEN URINE 0.2 E.U./dL (0.2-1.0)
[2018-05-13 02:17] LABS: *AMPHETAMINES SCREEN URINE NEGATIVE (NEGATIVE); *BARBITURATES SCREEN URINE NEGATIVE (NEGATIVE); *BENZODIAZEPINES SCREEN URINE NEGATIVE (NEGATIVE); *COCAINE SCREEN URINE NEGATIVE (NEGATIVE); CANNABINOID URINE SCREEN NEGATIVE (NEGATIVE); METHADONE URINE SCREEN NEGATIVE (NEGATIVE); PHENCYCLIDINE URINE SCREEN NEGATIVE (NEGATIVE)
[2018-05-13 02:18] LABS: OPIATES URINE SCREEN NEGATIVE (NEGATIVE)
[2018-05-13] MEDS: IPRATROPIUM/ALBUTEROL 0.5-3(2.5)MG/3ML NEB HHN SCH ×4 (02:43→19:59)
[2018-05-13] MEDS ORDERED: DEXTROSE 50% WATER 50ML SYRINGE IV PRN (03:45)
[2018-05-13] MEDS: LORAZEPAM 2MG/ML CPJ IV PRN ×2 (04:32→22:22)
[2018-05-13 05:31] LABS: CHLORIDE 104 mEq/L (98-107)
[2018-05-13 05:55] LABS: BASOPHILS % 0.9 % (0.0-2.0); HEMATOCRIT. 33.5 % (36.0-48.0); HEMOGLOBIN. 11.5 g/dL (12.0-16.0); LYMPHOCYTES % 8.4 % (20.0-50.0); MEAN CORPUSCULAR HEMOGLOBIN 33.6 pg (28.0-32.0); MEAN CORPUSCULAR VOLUME 98.1 fL (81.0-99.0); MEAN PLATELET VOLUME 9.4 fl (7.4-10.4); NEUTROPHILS % 89.7 % (40.0-76.0); PLATELET 179 x1000/uL (130-400); RED BLOOD CELL COUNT 3.41 mill/uL (4.2-5.4); RED CELL DISTRIBUTION WIDTH 12.9 % (11.6-14.6)
[2018-05-13] MEDS: PHENYTOIN SODIUM 100MG/2ML VIAL IV SCH ×3 (06:14→21:42)
[2018-05-13] MEDS: METRONIDAZOLE 500 MG PREMIX 100 ML IV SCH ×3 (06:15→22:04)
[2018-05-13] MEDS: INSULIN LISPRO 100 UNITS/ML SUBCUT SCH ×4 (06:16→21:50)
[2018-05-13] MEDS: BLOOD SUGAR DIAGNOSTIC STRIP TEST SCH ×4 (06:16→21:13)
[2018-05-13] MEDS: CEFEPIME 2,000 MG in DEXT 5% WATER 100 ML IV SCH ×2 (08:01→21:42)
[2018-05-13] MEDS: LEVETIRACETAM 500MG in SODIUM CHLORIDE 0.9% 100ML IV SCH ×2 (08:56→20:47)
[2018-05-13] MEDS: PANTOPRAZOLE SODIUM 40 MG/VIAL IV SCH (08:57)
[2018-05-13] MEDS: DEXT 5%/LACTATED RINGERS 1,000 ML IV SCH (13:41)
[2018-05-13] MEDS: HYDROCODONE/ACETAMINOPHEN 5/325MG TABLET PO PRN ×2 (15:19→22:21)
[2018-05-13] MEDS ORDERED: ALBU18HF2 IH (20:17)
[2018-05-13] MEDS ORDERED: TROL141. TP (20:17)
[2018-05-13] MEDS ORDERED: BECAQ NS (20:17)
[2018-05-13] MEDS ORDERED: INSU100I13 SQ (20:17)
[2018-05-13] MEDS ORDERED: TRAZ-213 PO (20:17)
[2018-05-13] MEDS ORDERED: NICO-681 TP (20:17)
[2018-05-13] MEDS ORDERED: DIPH25CA6 PO (20:17)
[2018-05-13] MEDS ORDERED: GABA-290 MT (20:17)
[2018-05-13] MEDS ORDERED: FAMO20TA8 PO (20:17)
[2018-05-13] MEDS ORDERED: INSULIN GLARGINE UD 100 UNITS/ML SYR SUBCUT SCH (22:00)
[2018-05-14] VITALS (46 sets, daily range): BP systolic 94–147; BP diastolic 34–93
[2018-05-14] MEDS: IPRATROPIUM/ALBUTEROL 0.5-3(2.5)MG/3ML NEB HHN SCH ×5 (00:16→20:57)
[2018-05-14] MEDS: NICOTINE 21MG PATCH TD SCH ×2 (02:13→21:59)
[2018-05-14] MEDS: DEXT 5%/LACTATED RINGERS 1,000 ML IV SCH ×2 (04:12→22:04)
[2018-05-14] MEDS: DEXAMETHASONE 4MG/ML 1ML VIAL IV SCH ×4 (05:08→17:05)
[2018-05-14] MEDS: PHENYTOIN SODIUM 100MG/2ML VIAL IV SCH ×3 (05:08→21:57)
[2018-05-14] MEDS: METRONIDAZOLE 500 MG PREMIX 100 ML IV SCH ×3 (05:08→21:47)
[2018-05-14 05:21] LABS: BASOPHILS % 0.5 % (0.0-2.0); EOSINOPHILS % 0.1 % (0.0-5.0); HEMATOCRIT. 31.8 % (36.0-48.0); HEMOGLOBIN. 10.9 g/dL (12.0-16.0); LYMPHOCYTES % 10.6 % (20.0-50.0); MEAN CORPUSCULAR HEMOGLOBIN 33.4 pg (28.0-32.0); MEAN CORPUSCULAR VOLUME 97.6 fL (81.0-99.0); MEAN PLATELET VOLUME 9.5 fl (7.4-10.4); MONOCYTES % 6.2 % (2.0-8.0); NEUTROPHILS % 82.6 % (40.0-76.0); PLATELET 169 x1000/uL (130-400); RED BLOOD CELL COUNT 3.26 mill/uL (4.2-5.4); RED CELL DISTRIBUTION WIDTH 12.9 % (11.6-14.6)
[2018-05-14 05:48] LABS: CHLORIDE 101 mEq/L (98-107)
[2018-05-14] MEDS: BLOOD SUGAR DIAGNOSTIC STRIP TEST SCH ×4 (06:05→21:49)
[2018-05-14] MEDS: INSULIN LISPRO 100 UNITS/ML SUBCUT SCH ×7 (06:48→22:01)
[2018-05-14] MEDS: LEVETIRACETAM 500MG in SODIUM CHLORIDE 0.9% 100ML IV SCH ×2 (09:47→21:47)
[2018-05-14] MEDS: CEFEPIME 2,000 MG in DEXT 5% WATER 100 ML IV SCH ×2 (09:47→21:47)
[2018-05-14] MEDS: PANTOPRAZOLE SODIUM 40 MG/VIAL IV SCH (09:50)
[2018-05-14] MEDS ORDERED: MAGNESIUM SULFATE 2 GM in DEXTROSE 5% WATER 50 ML IV NR ×2 (10:30→13:00)
[2018-05-14] MEDS: OMEPRAZOLE 20MG CAPSULE EXTENDED RELEASE PO SCH (12:45)
[2018-05-14] MEDS ORDERED: INSULIN GLARGINE UD 100 UNITS/ML SYR SUBCUT NR (14:00)
[2018-05-14] MEDS ORDERED: NICOTINE 21MG PATCH TD SCH (15:15)
[2018-05-14] MEDS ORDERED: IPRATROPIUM/ALBUTEROL 0.5-3(2.5)MG/3ML NEB HHN PRN (15:30)
[2018-05-14] MEDS ORDERED: MONTELUKAST SODIUM 10MG TABLET PO SCH (21:00)
[2018-05-14] MEDS ORDERED: ATORVASTATIN CALCIUM 20MG TABLET PO SCH (21:00)
[2018-05-14] MEDS: INSULIN GLARGINE UD 100 UNITS/ML SYR SUBCUT SCH (22:03)
[2018-05-15] VITALS (31 sets, daily range): BP systolic 96–166; BP diastolic 42–83
[2018-05-15] MEDS: DEXAMETHASONE 4MG/ML 1ML VIAL IV SCH ×2 (00:16→06:37)
[2018-05-15] MEDS: IPRATROPIUM/ALBUTEROL 0.5-3(2.5)MG/3ML NEB HHN SCH ×3 (01:52→14:10)
[2018-05-15 05:29] LABS: BASOPHILS % 0.7 % (0.0-2.0); EOSINOPHILS % 0.1 % (0.0-5.0); HEMATOCRIT. 36.2 % (36.0-48.0); HEMOGLOBIN. 12.1 g/dL (12.0-16.0); LYMPHOCYTES % 16.2 % (20.0-50.0); MEAN CORPUSCULAR HEMOGLOBIN 32.4 pg (28.0-32.0); MEAN PLATELET VOLUME 9.4 fl (7.4-10.4); MONOCYTES % 6.6 % (2.0-8.0); NEUTROPHILS % 76.4 % (40.0-76.0); PLATELET 186 x1000/uL (130-400); RED BLOOD CELL COUNT 3.74 mill/uL (4.2-5.4); RED CELL DISTRIBUTION WIDTH 13.1 % (11.6-14.6)
[2018-05-15 05:43] LABS: CHLORIDE 101 mEq/L (98-107)
[2018-05-15] MEDS: BLOOD SUGAR DIAGNOSTIC STRIP TEST SCH ×2 (06:28→11:30)
[2018-05-15] MEDS: OMEPRAZOLE 20MG CAPSULE EXTENDED RELEASE PO SCH (06:37)
[2018-05-15] MEDS: METRONIDAZOLE 500 MG PREMIX 100 ML IV SCH ×2 (06:37→13:34)
[2018-05-15] MEDS: INSULIN LISPRO 100 UNITS/ML SUBCUT SCH ×4 (06:37→12:35)
[2018-05-15] MEDS: PHENYTOIN SODIUM 100MG/2ML VIAL IV SCH (06:37)
[2018-05-15] MEDS: CEFEPIME 2,000 MG in DEXT 5% WATER 100 ML IV SCH (08:28)
[2018-05-15] MEDS: PANTOPRAZOLE SODIUM 40 MG/VIAL IV SCH (08:28)
[2018-05-15] MEDS: HYDROCODONE/ACETAMINOPHEN 5/325MG TABLET PO PRN (08:34)
[2018-05-15] MEDS: LEVETIRACETAM 500MG in SODIUM CHLORIDE 0.9% 100ML IV SCH (09:08)
[2018-05-15] MEDS: INSULIN GLARGINE UD 100 UNITS/ML SYR SUBCUT SCH (10:01)
[2018-05-15] MEDS ORDERED: DEXAMETHASONE 4MG TABLET PO SCH (12:00)
[2018-05-15] MEDS ORDERED: PHENYTOIN SODIUM EXTENDED 100MG CAPSULE PO SCH (14:00)
[2018-05-15] MEDS ORDERED: LEVETIRACETAM 500MG TABLET PO SCH (21:00)
== END 2018-05-15 14:25 | disposition home or self-care (01) | DRG 100 ==
LOC: ER 09:42 → EDBEDREQTM 11:27 → EDBEDREQ 11:27 → ENRESERV 16:51 → MICUSO 17:37
PROVIDERS: ADMIT Internal Medicine; ATTEND Internal Medicine
PROC: B548ZZA Ultrasonography of Superior Vena Cava, Guidance (ICD-10-PCS; principal; 2018-05-13)
PROC: 02HV33Z Insertion of Infusion Device into Superior Vena Cava, Percutaneous Approach (ICD-10-PCS; 2018-05-13)
PROC: B5181ZA Fluoroscopy of Superior Vena Cava using Low Osmolar Contrast, Guidance (ICD-10-PCS; 2018-05-13)
DX: G40.901 Epilepsy, unspecified, not intractable, with status epilepticus (principal); J96.00 Acute respiratory failure, unspecified whether with hypoxia or hypercapnia; G93.6 Cerebral edema; G93.40 Encephalopathy, unspecified; C79.31 Secondary malignant neoplasm of brain; C34.90 Malignant neoplasm of unspecified part of unspecified bronchus or lung; E78.00 Pure hypercholesterolemia, unspecified; E78.5 Hyperlipidemia, unspecified; F17.210 Nicotine dependence, cigarettes, uncomplicated; F41.8 Other specified anxiety disorders; I10 Essential (primary) hypertension; I25.10 Atherosclerotic heart disease of native coronary artery without angina pectoris; E11.65 Type 2 diabetes mellitus with hyperglycemia; I34.1 Nonrheumatic mitral (valve) prolapse; F32.9 Major depressive disorder, single episode, unspecified; J44.9 Chronic obstructive pulmonary disease, unspecified; R13.10 Dysphagia, unspecified; Z79.84 Long term (current) use of oral hypoglycemic drugs; Z85.118 Personal history of other malignant neoplasm of bronchus and lung; Z85.841 Personal history of malignant neoplasm of brain; Z91.19 Patient's noncompliance with other medical treatment and regimen; Z79.1 Long term (current) use of non-steroidal anti-inflammatories (NSAID); Z79.2 Long term (current) use of antibiotics; Z79.51 Long term (current) use of inhaled steroids; Z79.899 Other long term (current) drug therapy
CPT/HCPCS: 36415; 36569; 70450; 70553; 71045; 77001; 80048; 80053; 80305; 80320; 81003; 82140; 82962; 83036; 83605; 83690; 83735; 83880; 84443; 84484; 85025; 85610; 85730; 87040; 87086; 92610; 93005; 93970; 94640; 99291; A9577; C1725; C9113; J0692; J1100; J1165; J1815; J1953; J2060; J2405; J3475; J3490; J7050; J7060; J7620; J8540